=== PATIENT | female | born 1950 | race Caucasian/White ===

== ENCOUNTER 2016-05-01 14:40 | Emergency (ER) | payer MEDICARE, MEDICAID ==
--- NOTE | 2016-05-01 15:28 | ED Physician Chart ---
Chief Complaint/HPI - Patient Information Date Seen:: 05/01/16 Time Seen:: 15:00 Chief Complaint:: UNWITNESSED FALL OUT OF BED TO FLOOR History of Present Illness:: This 66 year old female was found on the floor laying next to her bed. This was an unwitnessed fall and the patient has no recall of falling and no complaints of pain anywhere. NO nause or vomiting. Pt is unable to relate her past medical history. Denies headache, neck pain, chest pain, abdominal pain or pain in extremities. Allergies:: Allergies Allergy/AdvReac Type Severity Reaction Status Date / Time No Known Allergies Allergy Verified 05/01/16 14:47 Vitals:: Vital Signs - 8 hr 05/01/16 14:48 Temp 98.2 F HR 68 RR 19 BP 154/63 O2 Sat % 98 Historian:: Other (The source of patient information is from the paperwork that accompanied the transfer to the emergency department.) Review of Systems - Review of Systems General/Constitutional: No fever, No chills, No diaphoresis, Other (PT IS TOO CONFUSED TO PROVIDE RELIABLE DATA) Skin: No rash, Bruising Head: No headache, No light-headedness Eyes: No loss of vision, No diplopia ENT: No earache, No sore throat, No tinnitus Neck: No neck pain, No thyromegaly, No stiffness, No mass noted Cardio Vascular: No chest pain, No palpitations Pulmonary: No SOB, No cough, No wheezing GI: No nausea, No vomiting, No diarrhea, No hematemesis G/U: No dysuria, No frequency, No hematuria 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 She also has renal insufficiency), DM, CAD ( AND GENERALIZED MUSCLE WEAKNESS.), CVA/TIA, Arthritis ( Degenerative joint disease.) , Other Family Medical History - Family Member Nephew History Unknown: Yes Ethnicity: Physical Exam - Physical Examination General/Constitutional: Awake, Well-developed, well-nourished, No distress, Non- toxic appearing Other Gen/Cons comments:: Nonambulatory. Head: Atraumatic Eyes: Lids, conjuctiva normal, PERRL, EOMI Skin: No rash Other Skin comments:: Patient has a 3 x 4 cm ecchymotic patch in the mid left forearm. ENMT: External ears, nose nl, Nasal exam nl, Oropharynx nl, Tonsils nl Other ENMT comments:: Multiple missing and broken teeth Neck: Nontender, No JVD, No nuchal rigidity, No mass Other Neck comments:: no tenderness on palpation over the posterior cervical spine. Respiratory: Nl effort/Exclusion, Clear to Auscultation, No Wheeze/Rhonchi/Rales Cardio Vascular: RRR, No murmur, gallop, rubs, NL S1 S2 Other Cardio Vascular comments:: Adequate pulses in all four extremities. GI: No tenderness/rebounding/guarding, No organomegaly, No hernia, Normal BS's, Nondistended, No mass/bruits, No McBurney tenderness Other GI comments:: Rectal examination deferred at my discretion. Well-heeled surgical scar in the right inguinal region. : No CVA tenderness Extremities: No tenderness or effusion, Full ROM, normal strength in all extremities, No edema ( no deformities in the upper or lower extremities.) Neuro/Psych: Normal sensory exam, Mood normal, No focal deficits Other Neuro/Psych comments:: Alert and oriented to her name and the fact that she's in a hospital. Not oriented to the months or day of week.Nonambulatory. Has normal sensory and motor testing given the patient's sex and age. Labs/Radiology/EKG Results - Lab Results Results: CT scan of the head and neck were negative for any traumatic findings. 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 It was not known if the patient lost consciousness but she has no recollection of the fall or waking up. On physical examination there was no visible or palpable evidence of head trauma. The patient has dementia and was oriented only's times two. No focal neurologic deficits were noted. The patient is nonambulatory. CT scan of the head and C-spine was negative for any acute traumatic injury. MDM DDX FALL WITH POSSIBLE HEAD INJURY: NOT Skull fracture Based on physical examination and CT scan of the head. NOT Intracranial hemorrhage based on the CT scan of the head. NOT acute C-Spine due to neg CT of the C-spine. NOT long bone fracture due to physical exam showing no deformities and no areas of tenderness. ED Septic Shock - . Is Septic Shock (SBP<90, OR Lactate>4 mmol\L) present?: No - <6hrs of presentation: Vital Signs: Vital Signs - 8 hr 05/01/16 14:48 Temp 98.2 F HR 68 RR 19 BP 154/63 O2 Sat % 98 Reassessment (Disposition) - Reassessment Reassessment Condition:: Unchanged - Aftercare/Follow up Instructions Aftercare/Follow-Up Instructions:: Counseled pt regarding lab results/diagnosis & need follow up - Patient Disposition Discharge/Transfer:: Assistant Distribution Manager Care - SNF ED Discharge Plan - Patient Disposition Admit/Discharge/Transfer: Discharge/Transfered to SNF Instructions: Fall Prevention and Home Safety, [id number], Dementia, Easy-to- Read
[2016-05-01 16:12] LABS: ALB/GLOB RATIO 0.7 (1.0-1.8); ALKALINE PHOSPHATASE 104 U/L (34-104); ANION GAP 7.6 (7.0-16.0); BILIRUBIN,TOTAL 0.2 mg/dL (0.3-1.0); BUN - UREA NITROGEN 14 mg/dL (7-25); BUN/CREATININE RATIO 12.7; CHLORIDE 104 mEq/L (98-107); CREATININE - SERUM 1.1 mg/dL (0.6-1.2); GLUCOSE 117 mg/dL (70-105); POTASSIUM SERUM 4.6 mEq/L (3.5-5.1); SGOT 26 U/L (13-39); SGPT/ALT 21 U/L (7-52); SODIUM SERUM 136 mEq/L (136-145)
[2016-05-01 17:14] LABS: URINE BILIRUBIN NEGATIVE (NEGATIVE); URINE BLOOD TRACE (NEGATIVE); URINE COLOR YELLOW; URINE GLUCOSE (UA) NEGATIVE (NEGATIVE); URINE KETONE NEGATIVE (NEGATIVE); URINE PROTEIN 100 mg/dL (NEGATIVE)
[2016-05-01 17:15] LABS: URINE BACTERIA FEW /hpf (NONE SEEN); URINE EPITHELIAL CELLS FEW /lpf (FEW); URINE HYALINE CAST 0-2 /lpf (0-2); URINE RBC 0-2 /hpf (0-5); URINE UROBILINOGEN 0.2 E.U./dL (0.2 - 1.0)
[2016-05-01 17:16] LABS: % BASOPHILS 0.2 % (0.0-2.0); % EOSINOPHILS 7.4 % (0.0-5.0); % LYMPHOCYTES 30.1 % (20.0-50.0); % MONOCYTES 8.7 % (2.0-10.0); % NEUTROPHILS 53.6 % (40.0-80.0); HEMATOCRIT 37.8 % (35.0-45.0); HEMOGLOBIN 12.6 gm/dL (11.7-16.1); MEAN CELL VOLUME 88.3 fl (81-100); MEAN CORPUSCULAR HEMOGLOBIN 29.4 pg (27.0-31.0); MEAN CORPUSCULAR HGB CONC 33.3 pg (28.0-36.0); MEAN PLATELET VOLUME 10.3 fl; NEUTROPHILE ABSOLUTE 5.3 Th/cmm (1.8-8.0); PLATELET COUNT 286 Th/cmm (150-400); RED BLOOD COUNT 4.29 Mil/cmm (3.80-5.20); WHITE BLOOD COUNT 9.9 Th/cmm (4.8-10.8)
--- NOTE | 2016-05-02 10:35 | Diagnostic Imaging Report ---
CT scan of the brain without intravenous contrast HISTORY: Headache, trauma Total DLP equals 825 CTDI equals 46.7 Axial sections were obtained from the base of the skull to the vertex. There is enlargement of the ventricular system along with enlargement of cerebral sulci and subarachnoid cisterns reflecting generalized atrophy. Extensive hypodensity without mass effect noted throughout the supratentorial white matter regions. The findings may be associated with chronic small vessel ischemic disease. Somewhat more discrete hypodensities seen in the left and to lesser degree right basal ganglia regions consistent with probable old infarcts. No acute intracerebral hemorrhage. Again, no mass effect or shift of midline structures. No extra-axial masses or abnormal fluid collections. IMPRESSION: 1. No definite acute abnormalities 2. Cerebral atrophy 3. Extensive supratentorial white matter changes that may be associated with chronic small vessel ischemic disease 4. Multifocal hypodensities within the right left parietal white matter regions suggesting old infarcts. If necessary, a follow-up MRI exam may be helpful.
--- NOTE | 2016-05-02 10:37 | Diagnostic Imaging Report ---
CT scan cervical spine HISTORY: Pain, trauma Total DLP equals 278 CTDI equals 16.6 Axial sections were obtained through the cervical spine. Additional sagittal and coronal reformatted images are provided. 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 Sclerotic margins seen. Findings may be congenital or related to old trauma. Diffuse degenerative changes are seen with hypertrophic spur formation noted about the endplates of C4 and a greater degree C5, C6, and C7. Narrowing of the C4-5, C5-6, C6-7 interspaces. No acute abnormalities. No fractures. Prevertebral soft tissues appear normal. IMPRESSION: 1. 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 Changes may be congenital or related to old trauma. 2. Degenerative changes
== END 2016-05-01 18:20 ==
LOC: ER 14:40
DX: Z04.3 Encounter for examination and observation following other accident (principal); F03.90 Unspecified dementia, unspecified severity, without behavioral disturbance, psychotic disturbance, mood disturbance, and anxiety; I10 Essential (primary) hypertension; E11.9 Type 2 diabetes mellitus without complications; I25.10 Atherosclerotic heart disease of native coronary artery without angina pectoris; Z86.73 Personal history of transient ischemic attack (TIA), and cerebral infarction without residual deficits
CPT/HCPCS: 36415-UA; 70450-TC; 72125-TC; 80053-TC; 81001-TC; 85025-TC; Z7610